=== PATIENT | male | born 1990 | race Caucasian/White ===

== ENCOUNTER → 2017-09-14 | Outpatient (CLI) | payer MEDICAID ==
--- NOTE | 2017-09-14 18:47 | MR ---
EXAMINATION TYPE: MR lumbar spine wo con DATE OF EXAM: 09/14/2017 COMPARISON: NONE HISTORY: LBP, [place] knee pain x 5 years, per patient. Bilateral knee pain, generalized muscle weakness, paresthesias of scan, and low back pain all per order. TECHNIQUE: Multiplanar, multisequence imaging of the lumbar spine is performed without IV contrast. FINDINGS: Sagittal images of the lumbar spine show vertebral body heights and alignment to appear sat isfactory. The intervertebral discs demonstrate normal heights and hydration. No suspicious posterior disc herniations are seen on sagittal images. The conus medullaris is normal in position and signal ending at T12-L1 disc space level. The bone marrow signal intensity is within normal limits. No sign ificant spurring is seen. Axial images show mild facet arthropathy mid to lower lumbar levels. Spinal canal is preserved and bi lateral neural foramina are patent at all lumbar levels. No suspicious retroperitoneal findings are i dentified. IMPRESSION: Mild facet arthropathy mid to lower lumbar levels otherwise unremarkable study.
== END | disposition home or self-care (01) ==
LOC: RADMRIMAIN 16:26
PROVIDERS: ATTEND Physical Medicine & Rehabilitation
DX: M46.96 Unspecified inflammatory spondylopathy, lumbar region (principal); R20.2 Paresthesia of skin; M25.561 Pain in right knee; M25.562 Pain in left knee; M62.81 Muscle weakness (generalized)
CPT/HCPCS: 72148

== ENCOUNTER 2018-02-09 11:39 | Emergency (ER) | payer MEDICAID, OTHER ==
[2018-02-09 11:47] VITALS: RESP 18
--- NOTE | 2018-02-09 12:08 | ED ---
General Adult HPI - General Chief complaint: Wound/Laceration Stated complaint: Finger injury [facility] Time Seen by Provider: 02/09/18 11:48 Source: patient, RN notes reviewed Mode of arrival: ambulatory Limitations: no limitations - History of Present Illness Initial comments: 27-year-old male presents to the emergency department for a chief complaint of laceration to the left second digit 2 hours. Patient states he was at work using a jewel grinder wheel when he accidentally cut the tip of his finger. Patient states he initially covered it with a Band-Aid and went back to work but it continued to bleed so he went to [facility]. [facility] then sent him to the emergency department. Patient states his tetanus is up-to-date as of 1 year ago. He denies any other injuries or lacerations. Patient has no other complaints at this time including shortness of breath, chest pain, abdominal pain, nausea or vomiting, headache, or visual changes. - Related Data Previous Rx's Medication Instructions Recorded Cephalexin [Keflex] 500 mg PO Q8HR 5 Days cap 02/09/18 Allergies Allergy/AdvReac Type Severity Reaction Status Date / Time egg Allergy Rash/Hives Verified 02/09/18 12:16 Review of Systems ROS Statement: Those systems with pertinent positive or pertinent negative responses have been documented in the HPI. ROS Other: All systems not noted in ROS Statement are negative. Past Medical History Past Medical History: No Reported History History of Any Multi-Drug Resistant Organisms: None Reported Past Surgical History: Hernia Repair Past Psychological History: No Psychological Hx Reported Smoking Status: Never smoker Past Alcohol Use History: Occasional Past Drug Use History: None Reported General Exam Limitations: no limitations General appearance: alert, in no apparent distress Head exam: Present: atraumatic, normocephalic, normal inspection Eye exam: Present: normal appearance, PERRL, EOMI. Absent: scleral icterus, conjunctival injection, periorbital swelling ENT exam: Present: normal exam, mucous membranes moist Neck exam: Present: normal inspection, full ROM. Absent: tenderness, meningismus, lymphadenopathy Respiratory exam: Present: normal lung sounds bilaterally. Absent: respiratory distress, wheezes, rales, rhonchi, stridor Cardiovascular Exam: Present: regular rate, normal rhythm, normal heart sounds. Absent: systolic murmur, diastolic murmur, rubs, gallop, clicks Extremities exam: Present: full ROM (Full range of motion of the left second digit including DIP, PIP, MCP joint), normal capillary refill (Capillary refill less than 2 seconds in the left digit the rest of the left hand), other ( Patient is a 1 cm laceration extending from the distal phalanx the medial aspect of the nail on the left second finger) Neurological exam: Present: alert, oriented X3, CN II-XII intact Psychiatric exam: Present: normal affect, normal mood Course Vital Signs 02/09/18 02/09/18 11:43 14:28 Temperature 98.1 F 98.2 F Pulse Rate 52 L 59 L Respiratory 18 18 Rate Blood Pressure 131/82 129/68 O2 Sat by Pulse 100 98 Oximetry Procedures - Laceration Laceration #1 Consent Obtained: verbal consent Indication: laceration Site: other (left 2nd digit) Description: linear Depth: simple, single layer Anesthetic Used: lidocaine 1% Anesthesia Technique: local infiltration Pre-repair: wound explored, irrigated extensively (With soap and water and then pressure irrigation with saline, cleaned with iodine), deep structures intact, foreign body removed Type of Sutures: vicryl Size of Sutures: 5-0 Number of Sutures: 6 Technique: simple, interrupted Patient Tolerated Procedure: well, no complications Additional Comments: Small foreign body was removed that is consistent with patient's small metallic foreign body seen on x-ray Medical Decision Making - Medical Decision Making 27 her old male presents to the emergency department for a chief complaint of left second digit laceration 2 hours occurring at work. Patient has full range of motion and neurovascular intact in the left second digit. On exam there is a 2 cm laceration extending on the palmar aspect of the distal second digit around to the nail bed. This was cleaned thoroughly and pressure irrigation was used. Foreign body was removed. 6 sutures were applied. Patient was given 5 days of Keflex as it is in the tip of the finger. He will return in 7-10 days to have sutures removed. He will follow up with primary care in 1-2 days and return here if his any worsening symptoms or signs of infection. Disposition Clinical Impression: Laceration Disposition: HOME SELF-CARE Condition: Good Instructions: Care For Your Stitches (ED), Laceration (ED) Additional Instructions: Please take antibiotic as directed. Monitor for any signs of infection and return if these occur. Follow-up with primary care in 1-2 days. Return to the emergency department if you have any worsening symptoms. Prescriptions: Cephalexin [Keflex] 500 mg PO Q8HR 5 Days cap Is patient prescribed a controlled substance at d/c from ED?: No Referrals: Renny Gannon DO [Primary Care Provider] - 1-2 days Time of Disposition: 14:07
--- NOTE | 2018-02-09 12:35 | XR ---
Second digit left hand HISTORY: Trauma and pain 3 views of the second digit of the left hand There is no fracture or dislocation. Bone mineralization, joint spaces and alignment are maintained. Some metallic density within the soft tissues may be posttraumatic at the distal aspect of the second digit. IMPRESSION: No acute bone abnormality.
[2018-02-09 14:30] VITALS: BP 129/68; PULSE 59; TEMP 98.2
== END 2018-02-09 14:28 | disposition home or self-care (01) ==
LOC: EC 11:39
DX: S61.221A Laceration with foreign body of left index finger without damage to nail, initial encounter (principal); Z91.012 Allergy to eggs; W31.89XA Contact with other specified machinery, initial encounter; Y92.69 Other specified industrial and construction area as the place of occurrence of the external cause; Y99.0 Civilian activity done for income or pay
CPT/HCPCS: 12041; 99283